=== PATIENT | male | born 1950 | race Native Hawaiian/Other Pacific Islander ===

== ENCOUNTER 2017-10-04 18:34 | Emergency (ER) | payer OTHER ==
[~2017-10-04] VITALS: Ht 180.3 cm; Wt 88.5 kg
[2017-10-04 19:20] LABS: PLATELET COUNT 787 K/uL (142-355)
[2017-10-04 19:23] LABS: POTASSIUM 4.5 mmol/L (3.6-5.2)
[2017-10-04] MEDS ORDERED: LISI20TA11 PO (19:25)
[2017-10-04 19:34] LABS: PARTIAL THROMBOPLASTIN TIME 26.9 SECONDS (24.5-33.6)
[2017-10-04 22:05] VITALS: BP 167/84; TEMP 97.8
== END 2017-10-04 22:05 | disposition short-term general hospital (02) ==
LOC: ED 18:34
DX: R07.89 Other chest pain (principal); J18.9 Pneumonia, unspecified organism; E11.9 Type 2 diabetes mellitus without complications; I10 Essential (primary) hypertension; R00.0 Tachycardia, unspecified
CPT/HCPCS: 36415; 36600; 80053; 82550; 82805; 84484; 85027; 85610; 85730; 93005; 96365; 96374; 96375; 96376; 99285; J2175; J2270; J2405